=== PATIENT | female | born 1945 | race Caucasian/White ===

== ENCOUNTER 2018-10-10 07:55 | Day surgery (SDC) | payer MEDICARE ==
[2018-10-03 11:08] LABS: BASOPHILS % (AUTO) 0.6 % (0-1); EOSINOPHILS # (AUTO) 0.1 X10'3 (0-0.9); EOSINOPHILS % (AUTO) 1.9 % (0-6); LYMPHOCYTES # (AUTO) 2.5 X10'3 (1.1-4.8); LYMPHOCYTES % (AUTO) 31.9 % (21-51); MEAN CORPUSCULAR HEMOGLOBIN 30.3 PG (27.0-31.0); MEAN CORPUSCULAR HGB CONC 34.2 g/dL (33.0-36.5); MEAN CORPUSCULAR VOLUME 88.4 FL (78-98); MEAN PLATELET VOLUME 7.6 FL (7.4-10.4); MONOCYTES # (AUTO) 0.9 X10'3 (0-0.9); MONOCYTES % (AUTO) 11.9 % (2-12); NEUTROPHILS # (AUTO) 4.1 X10'3 (1.8-7.7); NEUTROPHILS % (AUTO) 53.7 % (42-75); PRE OP HEMATOCRIT 43.9 % (35.0-45.0); PRE OP PLATELET COUNT 241 X10'3 (140-440); RED BLOOD COUNT 4.97 X10'6 (4.20-5.60); RED CELL DISTRIBUTION WIDTH 13.5 % (11.5-14.5)
[2018-10-03 11:26] LABS: ALBUMIN 3.3 G/DL (3.4-5.0); ALBUMIN/GLOBULIN RATIO 0.9 (1.1-1.5); ALKALINE PHOSPHATASE 107 IU/L (46-116); BLOOD UREA NITROGEN 8 MG/DL (7-18); BUN/CREATININE RATIO 9.5 (6.6-38.0); CALCIUM 9.3 MG/DL (8.5-10.1); CHLORIDE 103 MMOL/L (99-107); CREATININE 0.84 MG/DL (0.40-0.90); PRE OP ALT 27 U/L (30-65); PRE OP ANION GAP 4 (8-16); PRE OP AST 24 U/L (10-37); PRE OP BILIRUB, TOTAL 0.4 MG/DL (0.0-1.0); PRE OP GLUCOSE 78 MG/DL (70-104); PRE OP POTASSIUM 4.1 MMOL/L (3.4-5.1); PRE OP SODIUM 140 MMOL/L (135-145); TOTAL CARBON DIOXIDE 32.6 MMOL/L (24-32); TOTAL PROTEIN 7.1 G/DL (6.4-8.2); eGFR 66 ML/MIN
[2018-10-10] VITALS (7 sets, daily range): BP systolic 120–147; BP diastolic 58–74
[~2018-10-10] VITALS: Ht 167.6 cm; Wt 72.6 kg
[~2018-10-10 07:55] MED LIST: ASPI-1265 PO; ATOR10TA PO; LIDOcaine 0.5% (5mg/ml) 50ml vial ONE; MELA3TAB PO; MULT-968 PO; OMEG1CAP2 PO; OXYB5TAB80 PO; albuterol 2.5 MG/3 ML nebule NEB ONE; ceFAZolin 1GM/D5W- ADD-VANTAGE 50 ML IV ONE; famotidine 20mg tablet PO ONE; ringers solution, lacted 1,000 ML IV SCH
[2018-10-10] MEDS ORDERED: BUPIVAcaine/PF 2.5mg/ml (0.25%) 10ml vial ONE (09:54)
[2018-10-10] MEDS ORDERED: fentaNYL/PF 50MCG/1 ML 2ML syringe ONE (10:14)
[2018-10-10] MEDS ORDERED: midazolam 2 mg/2 ml injection ONE (10:14)
[2018-10-10] MEDS ORDERED: meperidine/PF 25mg/ml syringe IV PRN ×3 (10:40)
[2018-10-10] MEDS ORDERED: morphine 4 MG/ML inj SYRINge IV PRN ×2 (10:40)
[2018-10-10] MEDS ORDERED: ondansetron/PF 4mg/2ml inj IV PRN (10:40)
[2018-10-10] MEDS ORDERED: ringers solution, lacted 1,000 ML IV SCH (10:40)
[2018-10-10] MEDS ORDERED: proCHLORperazine 10 MG/2 ml inj IV PRN (10:40)
--- NOTE | 2018-10-10 10:55 | NUR ---
Received from OR via BED, accompanied by Anesthesiologist DR BRODY and report given by Anesthesiologist. 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 Addendum: 10/10/18 at 1114 by Sharon Worley RN Amended: Links added.
== END 2018-10-10 11:55 | disposition home or self-care (01) ==
LOC: PAS 07:55
PROVIDERS: ATTEND Orthopaedic Surgery Hand Surgery
DX: M65.4 Radial styloid tenosynovitis [de Quervain] (principal); J44.9 Chronic obstructive pulmonary disease, unspecified; G47.33 Obstructive sleep apnea (adult) (pediatric); F17.210 Nicotine dependence, cigarettes, uncomplicated; Z79.82 Long term (current) use of aspirin; Z79.899 Other long term (current) drug therapy; Z98.890 Other specified postprocedural states
CPT/HCPCS: 25000; 36415; 80053; 85025; 85610; 85730; 94640; 94760; A6222; A6449; J0690; J2001; J2250; J3010; J3490; J7120

== ENCOUNTER → 2021-03-03 | Outpatient (CLI) | payer MEDICARE, MEDICAID ==
[~2021-03-03] MED LIST changes: -LIDOcaine 0.5% (5mg/ml) 50ml vial ONE; -MELA3TAB PO; +MELA3TAB39 PO; -albuterol 2.5 MG/3 ML nebule NEB ONE; -ceFAZolin 1GM/D5W- ADD-VANTAGE 50 ML IV ONE; -famotidine 20mg tablet PO ONE; +iohexol 350 MG/ML 50ML vial IV ONE; +iohexol 350MG/ML 100ml bottle IV ONE; -ringers solution, lacted 1,000 ML IV SCH
== END | disposition home or self-care (01) ==
LOC: 64 CT 08:09
PROVIDERS: ATTEND Internal Medicine Interventional Cardiology
DX: I70.203 Unspecified atherosclerosis of native arteries of extremities, bilateral legs (principal); I70.0 Atherosclerosis of aorta; M47.816 Spondylosis without myelopathy or radiculopathy, lumbar region; M43.8X6 Other specified deforming dorsopathies, lumbar region; D25.9 Leiomyoma of uterus, unspecified; K86.89 Other specified diseases of pancreas
CPT/HCPCS: 75635; Q9967

== ENCOUNTER 2024-03-09 09:50 | Inpatient (IN) | payer MEDICARE, MEDICAID ==
[~2024-03-09] VITALS: Ht 167.6 cm; Wt 61.1 kg
[~2024-03-09 09:50] MED LIST changes: -iohexol 350 MG/ML 50ML vial IV ONE; -iohexol 350MG/ML 100ml bottle IV ONE
[2024-03-09 10:34] LABS: BASOPHILS % (AUTO) 0.2 % (0-1); EOSINOPHILS % (AUTO) 0 % (0-6); HEMATOCRIT 51.1 % (35.0-45.0); HEMOGLOBIN 16.7 g/dl (12.0-16.0); LYMPHOCYTES # (AUTO) 0.8 X10'3 (1.1-4.8); LYMPHOCYTES % (AUTO) 3.9 % (21-51); MEAN CORPUSCULAR HEMOGLOBIN 30.1 PG (27.0-31.0); MEAN CORPUSCULAR HGB CONC 32.6 g/dL (33.0-36.5); MEAN CORPUSCULAR VOLUME 92.4 FL (78-98); MEAN PLATELET VOLUME 8.6 FL (7.4-10.4); MONOCYTES # (AUTO) 1.6 X10'3 (0-0.9); NEUTROPHILS # (AUTO) 17.9 X10'3 (1.8-7.7); NEUTROPHILS % (AUTO) 87.9 % (42-75); PLATELET COUNT 145 X10'3 (140-440); RED BLOOD COUNT 5.53 X10'6 (4.20-5.60); RED CELL DISTRIBUTION WIDTH 14.1 % (11.5-14.5); WHITE BLOOD COUNT 20.4 X10'3 (4.5-11.0)
[2024-03-09 11:02] LABS: ALANINE AMINOTRANSFERASE 33 U/L (12-78); ALBUMIN 2.9 G/DL (3.4-5.0); ALBUMIN/GLOBULIN RATIO 0.7 (1.1-1.5); ALKALINE PHOSPHATASE 74 IU/L (46-116); ANION GAP 2 (8-16); ASPARTATE AMINO TRANSFERASE 28 U/L (10-37); BLOOD UREA NITROGEN 21 MG/DL (7-18); BUN/CREATININE RATIO 22.1 (10.0-20.0); CALCIUM 8.7 MG/DL (8.5-10.1); CHLORIDE 101 MMOL/L (99-107); CREATININE 0.95 MG/DL (0.40-0.90); GLUCOSE 120 MG/DL (70-104); LIPASE 13 U/L (16-77); POTASSIUM 3.9 MMOL/L (3.5-5.1); SODIUM 140 MMOL/L (135-145); TOTAL CARBON DIOXIDE 36.9 MMOL/L (24-32); TOTAL PROTEIN 7.2 G/DL (6.4-8.2); eCRCL 44 ML/MIN; eGFR 57 ML/MIN
[2024-03-09 12:03] LABS: URINE HCG NEGATIVE (NEG)
[2024-03-09 12:04] LABS: BILIRUBIN,URINE NEGATIVE (Neg); CLARITY,URINE CLEAR (Clear); COLOR,URINE YELLOW (Yellow); GLUCOSE, URINE NEGATIVE (Neg); KETONES,URINE NEGATIVE (Neg); LEUKOCYTE ESTERASE ,URINE NEGATIVE (Neg); NITRITES, URINE NEGATIVE (Neg); OCCULT BLOOD,URINE TRACE-INTACT (Neg); PROTEIN,URINE 100 mg/dl (Neg); UROBILINOGEN,URINE 0.2 E.U/dL (0.2-1.0)
[2024-03-09 12:08] LABS: UA COLLECTION TYPE CLN CATCH MIDSTREAM
[2024-03-09 12:13] LABS: RBC,URINE 0-2 /HPF (0-2)
[2024-03-09 12:14] LABS: FINE GRANULAR CAST 0-3 /LPF (NEGATIVE); SQUAMOUS EPITHELIAL CELL,UR FEW /LPF (FEW)
[2024-03-09 12:15] LABS: BACTERIA,URINE NONE SEEN /HPF (Neg); WBC,URINE 0-4 /HPF (0-4)
[2024-03-09] MEDS: acetaminophen 650mg rectal suppository RC STA (13:58)
[2024-03-09] MEDS: piperacillin/tazo 3.375gm/50ml 50 ML IV ONE (13:58)
[2024-03-09] MEDS: normal saline 1000ML IV soln IVB ONE (13:58)
[2024-03-09] MEDS ORDERED: magnesium Cl slow-release 64mg tablet PO PRN (14:20)
[2024-03-09] MEDS ORDERED: morphine 2 MG/ML inj. syringe IV PRN (14:20)
[2024-03-09] MEDS ORDERED: acetaminophen 325mg tablet PO PRN (14:20)
[2024-03-09] MEDS ORDERED: potassium Cl 40MEQ/1/2NS 520ml 520 ML IV PRN (14:20)
[2024-03-09] MEDS ORDERED: potassium Cl 20 mEq SR tablet PO PRN ×2 (14:20)
[2024-03-09] MEDS: normal saline 1000ml 1,000 ML IV SCH (16:11)
[2024-03-09] MEDS: acetaminophen 325mg tablet PO SCH (16:16)
[2024-03-09] MEDS: piperacillin/tazo 3.375gm/50ml 50 ML IV SCH (16:16)
[2024-03-09] MEDS: lisinopril 5mg tablet PO STA (18:42)
[2024-03-09 19:53] VITALS: BP 140/65; PULSE 86; RESP 20; TEMP 97.3; O2SAT 93
[2024-03-09 20:00] VITALS: RESP 18; O2SAT 93
[2024-03-09 22:00] VITALS: BP 154/72; PULSE 100; RESP 20; TEMP 97.5; O2SAT 92
[2024-03-09] MEDS: acetaminophen 325mg tablet PO ONE (22:41)
[2024-03-09] MEDS: heparin, porcine 5000 units/ml vial SQ SCH (22:43)
[2024-03-10] VITALS (10 sets, daily range): BP systolic 108–159; BP diastolic 57–88; PULSE 86–103; RESP 14–20; TEMP 97.5–99; O2SAT 89–96
[2024-03-10 06:17] LABS: BASOPHILS % (AUTO) 0.1 % (0-1); EOSINOPHILS % (AUTO) 0 % (0-6); HEMATOCRIT 51.3 % (35.0-45.0); HEMOGLOBIN 16.7 g/dl (12.0-16.0); LYMPHOCYTES # (AUTO) 1.4 X10'3 (1.1-4.8); LYMPHOCYTES % (AUTO) 7.2 % (21-51); MEAN CORPUSCULAR HEMOGLOBIN 30.1 PG (27.0-31.0); MEAN CORPUSCULAR HGB CONC 32.5 g/dL (33.0-36.5); MEAN CORPUSCULAR VOLUME 92.8 FL (78-98); MEAN PLATELET VOLUME 9.7 FL (7.4-10.4); MONOCYTES # (AUTO) 1.1 X10'3 (0-0.9); MONOCYTES % (AUTO) 5.4 % (2-12); NEUTROPHILS # (AUTO) 17.4 X10'3 (1.8-7.7); NEUTROPHILS % (AUTO) 87.3 % (42-75); PLATELET COUNT 146 X10'3 (140-440); RED BLOOD COUNT 5.53 X10'6 (4.20-5.60); RED CELL DISTRIBUTION WIDTH 14.1 % (11.5-14.5)
[2024-03-10 06:30] LABS: ALANINE AMINOTRANSFERASE 18 U/L (12-78); ALBUMIN 2.6 G/DL (3.4-5.0); ALBUMIN/GLOBULIN RATIO 0.6 (1.1-1.5); ALKALINE PHOSPHATASE 76 IU/L (46-116); ANION GAP 9 (8-16); ASPARTATE AMINO TRANSFERASE 27 U/L (10-37); BLOOD UREA NITROGEN 16 MG/DL (7-18); BUN/CREATININE RATIO 19.3 (10.0-20.0); C-REACTIVE PROTEIN 13.17 MG/DL (0.0-0.5); CALCIUM 8.5 MG/DL (8.5-10.1); CHLORIDE 103 MMOL/L (99-107); CREATININE 0.83 MG/DL (0.40-0.90); GLUCOSE 91 MG/DL (70-104); POTASSIUM 3.8 MMOL/L (3.5-5.1); SODIUM 140 MMOL/L (135-145); TOTAL CARBON DIOXIDE 27.9 MMOL/L (24-32); TOTAL PROTEIN 7.1 G/DL (6.4-8.2); eCRCL 51 ML/MIN; eGFR 66 ML/MIN
[2024-03-10] MEDS: lisinopril 10 MG tablet PO SCH (07:47)
[2024-03-10] MEDS: pantoprazole 40 MG vial IV SCH (13:14)
[2024-03-10] MEDS ORDERED: iohexol 350MG/ML 100ml bottle IV ONE (13:38)
[2024-03-10 15:28] LABS: BASOPHILS % (AUTO) 0.2 % (0-1); EOSINOPHILS % (AUTO) 0.1 % (0-6); HEMATOCRIT 50.1 % (35.0-45.0); HEMOGLOBIN 16.5 g/dl (12.0-16.0); LYMPHOCYTES # (AUTO) 1.2 X10'3 (1.1-4.8); LYMPHOCYTES % (AUTO) 6.3 % (21-51); MEAN CORPUSCULAR HEMOGLOBIN 30.5 PG (27.0-31.0); MEAN CORPUSCULAR VOLUME 92.5 FL (78-98); MONOCYTES # (AUTO) 0.9 X10'3 (0-0.9); MONOCYTES % (AUTO) 4.5 % (2-12); NEUTROPHILS # (AUTO) 17.2 X10'3 (1.8-7.7); NEUTROPHILS % (AUTO) 88.9 % (42-75); PLATELET COUNT 138 X10'3 (140-440); RED BLOOD COUNT 5.42 X10'6 (4.20-5.60); RED CELL DISTRIBUTION WIDTH 14.4 % (11.5-14.5); WHITE BLOOD COUNT 19.3 X10'3 (4.5-11.0)
[2024-03-10] MEDS: budesonide 0.5mg/2ml UD nebule IH SCH (19:22)
[2024-03-10] MEDS: ipratropium/albuterol 3ml nebule NEB PRN (19:22)
[2024-03-10] MEDS: acetaminophen 325mg tablet PO ONE (19:50)
[2024-03-10] MEDS: oxybutynin 5mg tablet PO SCH (20:17)
[2024-03-10] MEDS: Melatonin 3mg tablet PO SCH (20:17)
[2024-03-10 22:37] LABS: BASOPHILS % (AUTO) 0.1 % (0-1); EOSINOPHILS % (AUTO) 0 % (0-6); HEMATOCRIT 46.8 % (35.0-45.0); HEMOGLOBIN 15.1 g/dl (12.0-16.0); LYMPHOCYTES # (AUTO) 1.2 X10'3 (1.1-4.8); LYMPHOCYTES % (AUTO) 8.3 % (21-51); MEAN CORPUSCULAR HEMOGLOBIN 29.8 PG (27.0-31.0); MEAN CORPUSCULAR HGB CONC 32.3 g/dL (33.0-36.5); MEAN CORPUSCULAR VOLUME 92.3 FL (78-98); MEAN PLATELET VOLUME 9.1 FL (7.4-10.4); MONOCYTES # (AUTO) 0.6 X10'3 (0-0.9); MONOCYTES % (AUTO) 4.1 % (2-12); NEUTROPHILS % (AUTO) 87.5 % (42-75); PLATELET COUNT 126 X10'3 (140-440); RED BLOOD COUNT 5.07 X10'6 (4.20-5.60); WHITE BLOOD COUNT 14.9 X10'3 (4.5-11.0)
[2024-03-10 22:38] LABS: APTT 37 SECONDS (22-32); INR 1.1 INR; PROTHROMBIN TIME 11.4 SECONDS (9.0-12.0)
[2024-03-10 22:40] LABS: ALANINE AMINOTRANSFERASE 15 U/L (12-78); ALBUMIN 2.4 G/DL (3.4-5.0); ALBUMIN/GLOBULIN RATIO 0.6 (1.1-1.5); ALKALINE PHOSPHATASE 69 IU/L (46-116); ANION GAP 7 (8-16); ASPARTATE AMINO TRANSFERASE 22 U/L (10-37); BILIRUBIN,TOTAL 0.7 MG/DL (0.1-1.0); BLOOD UREA NITROGEN 15 MG/DL (7-18); BUN/CREATININE RATIO 15.3 (10.0-20.0); CHLORIDE 104 MMOL/L (99-107); CREATININE 0.98 MG/DL (0.40-0.90); GLUCOSE 154 MG/DL (70-104); POTASSIUM 3.5 MMOL/L (3.5-5.1); SODIUM 140 MMOL/L (135-145); TOTAL CARBON DIOXIDE 29.5 MMOL/L (24-32); TOTAL PROTEIN 6.4 G/DL (6.4-8.2); eCRCL 43 ML/MIN; eGFR 55 ML/MIN
[2024-03-10] MEDS ORDERED: midazolam 1 mg/ML 2ml injection ONE (23:30)
[2024-03-11] VITALS (41 sets, daily range): BP systolic 96–164; BP diastolic 43–75; PULSE 86–135; RESP 11–48; O2SAT 89–100
[2024-03-11] MEDS: NORepinephrine 8mg/ 250ml NS 250 ML IV ONE (00:04)
[2024-03-11] MEDS ORDERED: fentaNYL /PF 50mcg/ml 5ml ampule ONE (00:42)
[2024-03-11] MEDS ORDERED: LIDOcaine 2% (20mg/ml) 5ml vial ONE (00:48)
[2024-03-11] MEDS ORDERED: rocuronium 10mg/ml inj IV ONE ×3 (00:48→19:39)
[2024-03-11] MEDS ORDERED: propofol inj 20 ML IV ONE (00:48)
[2024-03-11] MEDS ORDERED: fentaNYL/PF 50MCG/1 ML 2ML syringe IV PRN (02:30)
[2024-03-11] MEDS: midazolam 1 mg/ML 2ml injection IV ONE (02:30)
[2024-03-11] MEDS ORDERED: heparin 1,000unit/ml 10ml vial 10 ML ONE (02:39)
[2024-03-11] MEDS ORDERED: ondansetron/PF 4mg/2ml inj ONE (02:39)
[2024-03-11] MEDS ORDERED: dexamethasone sod phosphate 4mg/ml inj. ONE (02:39)
[2024-03-11 03:21] LABS: INR 1.2 INR; PROTHROMBIN TIME 12.7 SECONDS (9.0-12.0)
[2024-03-11 03:33] LABS: APTT > 139 SECONDS (22-32)
[2024-03-11] MEDS: FENTANYL-0.9 % NACL/PF 100 ML IV SCH (04:00)
[2024-03-11] MEDS: MIDAZOLAM IN NACL,ISO-OSMOT/PF 100 ML IV SCH (04:00)
[2024-03-11 04:10] LABS: ABG BASE EXCESS -3.9 mmol/L (-2.0-2.0); ABG HCO3 20.7 mmol/L (22.0-26.0); ABG OXYGEN SATURATION 99.9 % (92-98.5); ABG PCO2 (T) 34.6 mmHg (32.0-45.0); ABG PO2 (T) 412.5 mmHg (75.0-100.0); FCOHb 0.8 % (0.5-1.5); FHHb 0.1 % (0.0-5.0); FMetHb 0.1 % (0.0-1.5); MODE VENT - SIMV; PATIENT TEMPERATURE 35.7; PEEP 5 cm H2O; RESPIRATORY RATE 12 b/min; TIDAL VOLUME 450 mL; TOTAL HEMOGLOBIN 14.6 G/dl (12.0-16.0)
[2024-03-11 04:29] LABS: BASOPHILS % (AUTO) 0.3 % (0-1); EOSINOPHILS % (AUTO) 0.2 % (0-6); HEMATOCRIT 42.4 % (35.0-45.0); HEMOGLOBIN 13.6 g/dl (12.0-16.0); LYMPHOCYTES # (AUTO) 1.4 X10'3 (1.1-4.8); LYMPHOCYTES % (AUTO) 9.1 % (21-51); MEAN CORPUSCULAR HEMOGLOBIN 29.5 PG (27.0-31.0); MEAN CORPUSCULAR HGB CONC 32.1 g/dL (33.0-36.5); MEAN PLATELET VOLUME 8.9 FL (7.4-10.4); MONOCYTES # (AUTO) 0.7 X10'3 (0-0.9); MONOCYTES % (AUTO) 4.9 % (2-12); NEUTROPHILS # (AUTO) 12.9 X10'3 (1.8-7.7); NEUTROPHILS % (AUTO) 85.5 % (42-75); PLATELET COUNT 132 X10'3 (140-440); RED BLOOD COUNT 4.61 X10'6 (4.20-5.60); RED CELL DISTRIBUTION WIDTH 14.1 % (11.5-14.5); WHITE BLOOD COUNT 15.1 X10'3 (4.5-11.0)
[2024-03-11 04:45] LABS: ALANINE AMINOTRANSFERASE 13 U/L (12-78); ALBUMIN 1.9 G/DL (3.4-5.0); ALBUMIN/GLOBULIN RATIO 0.6 (1.1-1.5); ALKALINE PHOSPHATASE 55 IU/L (46-116); ANION GAP 12 (8-16); ASPARTATE AMINO TRANSFERASE 24 U/L (10-37); BILIRUBIN,TOTAL 0.9 MG/DL (0.1-1.0); BLOOD UREA NITROGEN 15 MG/DL (7-18); BUN/CREATININE RATIO 18.1 (10.0-20.0); CALCIUM 7.3 MG/DL (8.5-10.1); CHLORIDE 105 MMOL/L (99-107); CREATININE 0.83 MG/DL (0.40-0.90); GLUCOSE 137 MG/DL (70-104); MAGNESIUM 1.4 MG/DL (1.5-2.4); PHOSPHORUS 1.4 MG/DL (2.3-4.5); SODIUM 141 MMOL/L (135-145); TOTAL CARBON DIOXIDE 24.1 MMOL/L (24-32); TOTAL PROTEIN 5.1 G/DL (6.4-8.2); eCRCL 51 ML/MIN; eGFR 66 ML/MIN
[2024-03-11 04:52] LABS: POTASSIUM 2.9 MMOL/L (3.5-5.1)
[2024-03-11] MEDS: magnesium sulf-water 4G/100mL 100 ML IV PRN (05:03)
[2024-03-11] MEDS: potassium Cl 20mEq/100mL bag 100 ML IV PRN (05:09)
[2024-03-11] MEDS ORDERED: NORepinephrine 8mg/ 250ml NS 250 ML IV PRN ×2 (06:05→06:07)
[2024-03-11] MEDS: lisinopril 10 MG tablet PO SCH (08:53)
[2024-03-11] MEDS: atorvastatin 10mg tablet PO SCH (08:54)
[2024-03-11] MEDS: aspirin 81mg tab.chew PO SCH (08:54)
[2024-03-11] MEDS: multivitamins, therapeutics tablet PO SCH (08:54)
[2024-03-11] MEDS: OMEGA-3/DHA/EPA/FISH OIL 1 EACH CAPSULE.DR PO SCH (08:56)
[2024-03-11] MEDS: magnesium sulf-water 2g/50mL 50 ML IV PRN (09:34)
[2024-03-11] MEDS: albumin (Human) 5% 250ml 250 ML IV ONE ×2 (10:17→12:46)
[2024-03-11] MEDS ORDERED: iohexol 350MG/ML 100ml bottle IV ONE (13:36)
[2024-03-11 18:32] LABS: POTASSIUM 4.5 MMOL/L (3.5-5.1)
[2024-03-11] MEDS ORDERED: sevoflurane 250ml liquid IH ONE (18:32)
[2024-03-11 18:45] LABS: MAGNESIUM 3.1 MG/DL (1.5-2.4)
[2024-03-11 20:05] LABS: ABG BASE EXCESS -5.7 mmol/L (-2.0-2.0); ABG HCO3 19.2 mmol/L (22.0-26.0); ABG OXYGEN SATURATION 97.5 % (92-98.5); ABG PCO2 (T) 34.6 mmHg (32.0-45.0); ABG PH (T) 7.359 (7.350-7.450); FCOHb 0.7 % (0.5-1.5); FHHb 2.5 % (0.0-5.0); FMetHb 0.3 % (0.0-1.5); FO2Hb 96.5 % (94-97); PATIENT TEMPERATURE 36.2; PEEP 5 cm H2O; RESPIRATORY RATE 12 b/min; TIDAL VOLUME 450 mL
[2024-03-11] MEDS: albuterol 2.5 MG/3 ML nebule NEB PRN (21:03)
[2024-03-12] VITALS (41 sets, daily range): BP systolic 93–147; BP diastolic 37–62; PULSE 74–122; RESP 12–30; O2SAT 97–100
[2024-03-12 02:57] LABS: BASOPHILS % (AUTO) 0.1 % (0-1); EOSINOPHILS % (AUTO) 0 % (0-6); HEMATOCRIT 36.8 % (35.0-45.0); HEMOGLOBIN 11.9 g/dl (12.0-16.0); LYMPHOCYTES # (AUTO) 0.6 X10'3 (1.1-4.8); LYMPHOCYTES % (AUTO) 4.3 % (21-51); MEAN CORPUSCULAR HGB CONC 32.2 g/dL (33.0-36.5); MEAN CORPUSCULAR VOLUME 93.2 FL (78-98); MEAN PLATELET VOLUME 9.2 FL (7.4-10.4); MONOCYTES % (AUTO) 7.6 % (2-12); NEUTROPHILS # (AUTO) 11.7 X10'3 (1.8-7.7); PLATELET COUNT 139 X10'3 (140-440); RED BLOOD COUNT 3.95 X10'6 (4.20-5.60); RED CELL DISTRIBUTION WIDTH 14.8 % (11.5-14.5); WHITE BLOOD COUNT 13.2 X10'3 (4.5-11.0)
[2024-03-12 03:13] LABS: ALANINE AMINOTRANSFERASE 18 U/L (12-78); ALBUMIN 2.2 G/DL (3.4-5.0); ALBUMIN/GLOBULIN RATIO 0.7 (1.1-1.5); ALKALINE PHOSPHATASE 40 IU/L (46-116); ANION GAP 5 (8-16); ASPARTATE AMINO TRANSFERASE 16 U/L (10-37); BILIRUBIN,TOTAL 0.7 MG/DL (0.1-1.0); BLOOD UREA NITROGEN 17 MG/DL (7-18); BUN/CREATININE RATIO 15.9 (10.0-20.0); CALCIUM 7.4 MG/DL (8.5-10.1); CHLORIDE 109 MMOL/L (99-107); CREATININE 1.07 MG/DL (0.40-0.90); GLUCOSE 138 MG/DL (70-104); MAGNESIUM 2.8 MG/DL (1.5-2.4); PHOSPHORUS 3.6 MG/DL (2.3-4.5); POTASSIUM 4.1 MMOL/L (3.5-5.1); SODIUM 139 MMOL/L (135-145); TOTAL CARBON DIOXIDE 25.5 MMOL/L (24-32); TOTAL PROTEIN 5.4 G/DL (6.4-8.2); eCRCL 39 ML/MIN; eGFR 49 ML/MIN
[2024-03-12 03:27] LABS: ABG BASE EXCESS -3.5 mmol/L (-2.0-2.0); ABG HCO3 23.1 mmol/L (22.0-26.0); ABG OXYGEN SATURATION 97.1 % (92-98.5); ABG PCO2 (T) 47.5 mmHg (32.0-45.0); ABG PH (T) 7.304 (7.350-7.450); ABG PO2 (T) 92.9 mmHg (75.0-100.0); FCOHb 0.6 % (0.5-1.5); FHHb 2.9 % (0.0-5.0); FMetHb 0.3 % (0.0-1.5); FO2Hb 96.2 % (94-97); MODE VENT - SIMV; PATIENT TEMPERATURE 36.6; PEEP 5 cm H2O; RESPIRATORY RATE 12 b/min; TIDAL VOLUME 450 mL; TOTAL HEMOGLOBIN 12.4 G/dl (12.0-16.0)
[2024-03-12] MEDS: NORepinephrine 8mg/ 250ml NS 250 ML IV PRN (04:44)
[2024-03-12] MEDS: mineral oil/petrolatum ophthal oint EACHEYE SCH (08:00)
[2024-03-12] MEDS: albumin (Human) 5% 250ml 250 ML IV ONE ×4 (08:34→11:50)
[2024-03-12] MEDS ORDERED: PREG75CA76 PO (12:30)
[2024-03-12] MEDS ORDERED: FURO20TA4 PO (12:30)
[2024-03-12] MEDS: dexmedetomidin/NS 400mcg/100ml 100 ML IV PRN (13:20)
[2024-03-12 17:27] LABS: HEMATOCRIT 29.4 % (35.0-45.0); HEMOGLOBIN 9.6 g/dl (12.0-16.0); MEAN CORPUSCULAR HEMOGLOBIN 30.7 PG (27.0-31.0); MEAN CORPUSCULAR HGB CONC 32.8 g/dL (33.0-36.5); MEAN CORPUSCULAR VOLUME 93.4 FL (78-98); MEAN PLATELET VOLUME 8.9 FL (7.4-10.4); PLATELET COUNT 114 X10'3 (140-440); RED BLOOD COUNT 3.14 X10'6 (4.20-5.60); RED CELL DISTRIBUTION WIDTH 14.8 % (11.5-14.5); WHITE BLOOD COUNT 10.7 X10'3 (4.5-11.0)
[2024-03-13] VITALS (40 sets, daily range): BP systolic 43–150; BP diastolic 21–61; PULSE 74–120; RESP 7–35; O2SAT 93–100
[2024-03-13] MEDS ORDERED: DEXTROSE 15 GM of carb/4 tabs (each vial/BOTTLE has 4 tablets) PO PRN ×2 (02:15)
[2024-03-13] MEDS ORDERED: dextrose 50%-water 50ml dispensing syringe IV PRN (02:15)
[2024-03-13] MEDS ORDERED: glucagon, human recombinant 1mg kit SUBCUT PRN (02:15)
[2024-03-13] MEDS: dextrose 50%-water 50ml dispensing syringe IV PRN (02:21)
[2024-03-13 03:10] LABS: ABG BASE EXCESS -5.6 mmol/L (-2.0-2.0); ABG HCO3 20.5 mmol/L (22.0-26.0); ABG OXYGEN SATURATION 96.7 % (92-98.5); ABG PCO2 (T) 42.7 mmHg (32.0-45.0); ABG PO2 (T) 93.6 mmHg (75.0-100.0); FCOHb 0.4 % (0.5-1.5); FHHb 3.3 % (0.0-5.0); FMetHb 0.3 % (0.0-1.5); PEEP 5 cm H2O; RESPIRATORY RATE 12 b/min; TIDAL VOLUME 450 mL; TOTAL HEMOGLOBIN 10.5 G/dl (12.0-16.0)
[2024-03-13 03:19] LABS: BASOPHILS % (AUTO) 0 % (0-1); EOSINOPHILS % (AUTO) 0 % (0-6); HEMATOCRIT 29.4 % (35.0-45.0); HEMOGLOBIN 9.5 g/dl (12.0-16.0); LYMPHOCYTES # (AUTO) 0.7 X10'3 (1.1-4.8); LYMPHOCYTES % (AUTO) 7.5 % (21-51); MEAN CORPUSCULAR HEMOGLOBIN 30.3 PG (27.0-31.0); MEAN CORPUSCULAR HGB CONC 32.4 g/dL (33.0-36.5); MEAN CORPUSCULAR VOLUME 93.6 FL (78-98); MONOCYTES # (AUTO) 0.8 X10'3 (0-0.9); NEUTROPHILS # (AUTO) 7.8 X10'3 (1.8-7.7); NEUTROPHILS % (AUTO) 83.5 % (42-75); PLATELET COUNT 92 X10'3 (140-440); RED BLOOD COUNT 3.15 X10'6 (4.20-5.60); RED CELL DISTRIBUTION WIDTH 15.2 % (11.5-14.5); WHITE BLOOD COUNT 9.3 X10'3 (4.5-11.0)
[2024-03-13 03:31] LABS: ALANINE AMINOTRANSFERASE 25 U/L (12-78); ALBUMIN 2.3 G/DL (3.4-5.0); ALBUMIN/GLOBULIN RATIO 0.9 (1.1-1.5); ALKALINE PHOSPHATASE 36 IU/L (46-116); ANION GAP 8 (8-16); ASPARTATE AMINO TRANSFERASE 52 U/L (10-37); BILIRUBIN,TOTAL 0.7 MG/DL (0.1-1.0); BLOOD UREA NITROGEN 21 MG/DL (7-18); BUN/CREATININE RATIO 17.5 (10.0-20.0); CALCIUM 7.5 MG/DL (8.5-10.1); CHLORIDE 111 MMOL/L (99-107); GLUCOSE 126 MG/DL (70-104); POTASSIUM 3.5 MMOL/L (3.5-5.1); SODIUM 141 MMOL/L (135-145); TOTAL CARBON DIOXIDE 21.7 MMOL/L (24-32); TOTAL PROTEIN 4.9 G/DL (6.4-8.2); eCRCL 35 ML/MIN; eGFR 43 ML/MIN
[2024-03-13] MEDS: potassium Cl 20mEq/100mL bag 100 ML IV ONE (04:08)
[2024-03-13] MEDS: albumin (human) 25% 100 ML IV solution IV ONE (09:32)
[2024-03-13] MEDS: HYDROcodone/acetaminophen 5mg/325mg tablet PO PRN (10:51)
[2024-03-13] MEDS ORDERED: albumin (human) 25% 100ml IV 400 ML IV ONE ×2 (11:00→11:10)
[2024-03-13] MEDS ORDERED: albumin (Human) 5% 250ml 250 ML IV SCH (12:05)
[2024-03-13] MEDS: dextrose 5%-normal saline 1,000 ML IV SCH (13:40)
[2024-03-13] MEDS: HYDROmorphone inj. 0.5 MG/0.5 ML DISP.SYRIN IV PRN (21:32)
[2024-03-14] VITALS (45 sets, daily range): BP systolic 101–143; BP diastolic 40–84; PULSE 79–132; RESP 13–40; O2SAT 93–99
[2024-03-14 03:43] LABS: ABG BASE EXCESS -7.3 mmol/L (-2.0-2.0); ABG HCO3 18.3 mmol/L (22.0-26.0); ABG OXYGEN SATURATION 97.8 % (92-98.5); ABG PCO2 (T) 37.3 mmHg (32.0-45.0); ABG PH (T) 7.309 (7.350-7.450); FCOHb 0.2 % (0.5-1.5); FHHb 2.2 % (0.0-5.0); FMetHb 0.3 % (0.0-1.5); FO2Hb 97.3 % (94-97); MODE VENT - SIMV; PEEP 5 cm H2O; RESPIRATORY RATE 12 b/min; TIDAL VOLUME 450 mL; TOTAL HEMOGLOBIN 10.2 G/dl (12.0-16.0)
[2024-03-14 04:04] LABS: ALANINE AMINOTRANSFERASE 24 U/L (12-78); ALBUMIN 1.8 G/DL (3.4-5.0); ALBUMIN/GLOBULIN RATIO 0.8 (1.1-1.5); ALKALINE PHOSPHATASE 39 IU/L (46-116); ANION GAP 8 (8-16); ASPARTATE AMINO TRANSFERASE 39 U/L (10-37); BILIRUBIN,TOTAL 0.5 MG/DL (0.1-1.0); BLOOD UREA NITROGEN 18 MG/DL (7-18); BUN/CREATININE RATIO 17.8 (10.0-20.0); CALCIUM 6.6 MG/DL (8.5-10.1); CHLORIDE 116 MMOL/L (99-107); CREATININE 1.01 MG/DL (0.40-0.90); GLUCOSE 120 MG/DL (70-104); SODIUM 145 MMOL/L (135-145); TOTAL CARBON DIOXIDE 20.6 MMOL/L (24-32); TOTAL PROTEIN 4.1 G/DL (6.4-8.2); eCRCL 42 ML/MIN; eGFR 53 ML/MIN
[2024-03-14 06:53] LABS: BASOPHILS % (AUTO) 0.1 % (0-1); EOSINOPHILS % (AUTO) 0.3 % (0-6); HEMATOCRIT 30.5 % (35.0-45.0); HEMOGLOBIN 9.9 g/dl (12.0-16.0); LYMPHOCYTES # (AUTO) 0.9 X10'3 (1.1-4.8); LYMPHOCYTES % (AUTO) 9.7 % (21-51); MEAN CORPUSCULAR HEMOGLOBIN 30.2 PG (27.0-31.0); MEAN CORPUSCULAR HGB CONC 32.6 g/dL (33.0-36.5); MEAN CORPUSCULAR VOLUME 92.7 FL (78-98); MEAN PLATELET VOLUME 8.4 FL (7.4-10.4); MONOCYTES # (AUTO) 0.8 X10'3 (0-0.9); MONOCYTES % (AUTO) 8.4 % (2-12); NEUTROPHILS # (AUTO) 7.8 X10'3 (1.8-7.7); NEUTROPHILS % (AUTO) 81.5 % (42-75); PLATELET COUNT 115 X10'3 (140-440); RED BLOOD COUNT 3.29 X10'6 (4.20-5.60); RED CELL DISTRIBUTION WIDTH 14.8 % (11.5-14.5); WHITE BLOOD COUNT 9.6 X10'3 (4.5-11.0)
[2024-03-14] MEDS ORDERED: magnesium sulf-water 2g/50mL 50 ML IV PRN ×2 (08:10→15:15)
[2024-03-14] MEDS ORDERED: magnesium sulf-water 4G/100mL 100 ML IV PRN ×2 (08:10→15:15)
[2024-03-14] MEDS ORDERED: potassium Cl 40MEQ/270ML bag 270 ML IV PRN ×3 (08:10→15:15)
[2024-03-14] MEDS ORDERED: potassium Cl 20 mEq SR tablet PO PRN ×2 (08:10)
[2024-03-14] MEDS ORDERED: potassium Cl 40MEQ/1/2NS 520ml 520 ML IV PRN ×3 (08:10→15:15)
[2024-03-14] MEDS: racepinephrine 11.25mg/0.5ml nebule IH PRN (12:46)
[2024-03-14] MEDS: albuterol 2.5 MG/3 ML nebule NEB SCH (15:10)
[2024-03-14] MEDS ORDERED: Dextrose 10%-water IV solution 1,000 ML IV PRN (15:15)
[2024-03-14] MEDS: ondansetron/PF 4mg/2ml inj IV PRN (16:25)
[2024-03-14 18:00] LABS: ALANINE AMINOTRANSFERASE 35 U/L (12-78); ALBUMIN 2.4 G/DL (3.4-5.0); ALBUMIN/GLOBULIN RATIO 0.8 (1.1-1.5); ALKALINE PHOSPHATASE 56 IU/L (46-116); ANION GAP 7 (8-16); ASPARTATE AMINO TRANSFERASE 39 U/L (10-37); BILIRUBIN,TOTAL 0.7 MG/DL (0.1-1.0); BLOOD UREA NITROGEN 16 MG/DL (7-18); BUN/CREATININE RATIO 15.7 (10.0-20.0); CALCIUM 7.9 MG/DL (8.5-10.1); CHLORIDE 114 MMOL/L (99-107); CREATININE 1.02 MG/DL (0.40-0.90); GLUCOSE 107 MG/DL (70-104); MAGNESIUM 2.1 MG/DL (1.5-2.4); POTASSIUM 4.7 MMOL/L (3.5-5.1); PREALBUMIN 8.8 MG/DL (19-36); SODIUM 143 MMOL/L (135-145); TOTAL CARBON DIOXIDE 21.8 MMOL/L (24-32); TOTAL PROTEIN 5.4 G/DL (6.4-8.2); TRIGLYCERIDES 86 MG/DL (20-135); eCRCL 41 ML/MIN; eGFR 52 ML/MIN
[2024-03-14] MEDS: ZINC/COPPER/MANGANESE/SELENIUM 1 ML, chromic chloride inj. 10 MCG in AA 5%/CALCIUM/LYTE... IV SCH (20:21)
[2024-03-14] MEDS: fat emulsion 20% inj. 100 ML IV SCH (20:22)
[2024-03-15] VITALS (30 sets, daily range): BP systolic 88–147; BP diastolic 39–66; PULSE 82–133; RESP 14–33; O2SAT 64–99
[2024-03-15 03:07] LABS: BASOPHILS % (AUTO) 0.1 % (0-1); EOSINOPHILS # (AUTO) 0.1 X10'3 (0-0.9); EOSINOPHILS % (AUTO) 0.5 % (0-6); HEMATOCRIT 30.9 % (35.0-45.0); LYMPHOCYTES # (AUTO) 0.9 X10'3 (1.1-4.8); LYMPHOCYTES % (AUTO) 8.5 % (21-51); MEAN CORPUSCULAR HEMOGLOBIN 30.5 PG (27.0-31.0); MEAN CORPUSCULAR HGB CONC 32.4 g/dL (33.0-36.5); MONOCYTES # (AUTO) 0.8 X10'3 (0-0.9); MONOCYTES % (AUTO) 8.2 % (2-12); NEUTROPHILS # (AUTO) 8.5 X10'3 (1.8-7.7); NEUTROPHILS % (AUTO) 82.7 % (42-75); PLATELET COUNT 136 X10'3 (140-440); RED BLOOD COUNT 3.29 X10'6 (4.20-5.60); RED CELL DISTRIBUTION WIDTH 15.5 % (11.5-14.5); WHITE BLOOD COUNT 10.2 X10'3 (4.5-11.0)
[2024-03-15 03:24] LABS: ALANINE AMINOTRANSFERASE 32 U/L (12-78); ALBUMIN 2.3 G/DL (3.4-5.0); ALBUMIN/GLOBULIN RATIO 0.8 (1.1-1.5); ALKALINE PHOSPHATASE 57 IU/L (46-116); ANION GAP 5 (8-16); ASPARTATE AMINO TRANSFERASE 33 U/L (10-37); BILIRUBIN,TOTAL 0.6 MG/DL (0.1-1.0); BLOOD UREA NITROGEN 15 MG/DL (7-18); BUN/CREATININE RATIO 15.6 (10.0-20.0); CALCIUM 8.2 MG/DL (8.5-10.1); CHLORIDE 113 MMOL/L (99-107); CREATININE 0.96 MG/DL (0.40-0.90); GLUCOSE 128 MG/DL (70-104); MAGNESIUM 2.2 MG/DL (1.5-2.4); PHOSPHORUS 2.4 MG/DL (2.3-4.5); POTASSIUM 4.6 MMOL/L (3.5-5.1); SODIUM 144 MMOL/L (135-145); TOTAL CARBON DIOXIDE 25.7 MMOL/L (24-32); TOTAL PROTEIN 5.3 G/DL (6.4-8.2); eCRCL 44 ML/MIN; eGFR 56 ML/MIN
[2024-03-15] MEDS: K and/or MAG REPLACEMENT MC SCH (08:00)
[2024-03-15] MEDS: furosemide 20 MG/2 ML vial IV SCH (16:21)
[2024-03-15] MEDS: furosemide 20 MG/2 ML vial IV ONE (16:24)
[2024-03-15] MEDS: aspirin 300mg supp.rect RC SCH (16:24)
[2024-03-15] MEDS: metoclopramide 5 mg/ml inj IV SCH (20:20)
[2024-03-15] MEDS: enoxaparin 40mg/0.4ml syringe SUBCUT SCH (20:21)
[2024-03-15] MEDS: ZINC/COPPER/MANGANESE/SELENIUM 1 ML, chromic chloride inj. 10 MCG in AA 5%/CALCIUM/LYTE... IV SCH (20:24)
[2024-03-16] VITALS (39 sets, daily range): BP systolic 79–162; BP diastolic 36–77; PULSE 63–124; RESP 14–36; O2SAT 91–100
[2024-03-16] MEDS: amiodarone 150mg/dext, iso-os 100 ML IV ONE (00:13)
[2024-03-16] MEDS: amiodarone/D5 360MG/200ML BAG 200 ML IV SCH (00:14)
[2024-03-16 03:17] LABS: ABG HCO3 23.3 mmol/L (22.0-26.0); ABG OXYGEN SATURATION 92.6 % (92-98.5); ABG PCO2 (T) 52.6 mmHg (32.0-45.0); ALLEN'S TEST POSITIVE; FCOHb 1.2 % (0.5-1.5); FHHb 7.3 % (0.0-5.0); FLOW 15 L/min; FO2Hb 91.5 % (94-97); MODE MASK - BIPAP; PATIENT TEMPERATURE 34.6; TOTAL HEMOGLOBIN 11.9 G/dl (12.0-16.0)
[2024-03-16 03:42] LABS: ALANINE AMINOTRANSFERASE 30 U/L (12-78); ALBUMIN 2.2 G/DL (3.4-5.0); ALBUMIN/GLOBULIN RATIO 0.6 (1.1-1.5); ALKALINE PHOSPHATASE 62 IU/L (46-116); ANION GAP 6 (8-16); ASPARTATE AMINO TRANSFERASE 19 U/L (10-37); BILIRUBIN,TOTAL 0.5 MG/DL (0.1-1.0); BLOOD UREA NITROGEN 17 MG/DL (7-18); BUN/CREATININE RATIO 21.3 (10.0-20.0); CALCIUM 8.5 MG/DL (8.5-10.1); CHLORIDE 110 MMOL/L (99-107); GLUCOSE 212 MG/DL (70-104); MAGNESIUM 1.9 MG/DL (1.5-2.4); POTASSIUM 4.4 MMOL/L (3.5-5.1); PREALBUMIN 10.5 MG/DL (19-36); SODIUM 143 MMOL/L (135-145); TOTAL CARBON DIOXIDE 27.3 MMOL/L (24-32); TOTAL PROTEIN 5.7 G/DL (6.4-8.2); TRIGLYCERIDES 76 MG/DL (20-135); eCRCL 53 ML/MIN; eGFR 69 ML/MIN
[2024-03-16] MEDS: dexmedetomidin/NS 400mcg/100ml 100 ML IV SCH (03:46)
[2024-03-16 04:48] LABS: ABG BASE EXCESS -4.9 mmol/L (-2.0-2.0); ABG HCO3 22.4 mmol/L (22.0-26.0); ABG OXYGEN SATURATION 95.3 % (92-98.5); ABG PCO2 (T) 51.8 mmHg (32.0-45.0); ABG PH (T) 7.255 (7.350-7.450); ABG PO2 (T) 83.1 mmHg (75.0-100.0); ALLEN'S TEST POSITIVE; FHHb 4.6 % (0.0-5.0); FMetHb 0.3 % (0.0-1.5); FO2Hb 94.1 % (94-97); MODE MASK - BIPAP; PATIENT TEMPERATURE 37.3; RESPIRATORY RATE 18 b/min; TOTAL HEMOGLOBIN 11.7 G/dl (12.0-16.0)
[2024-03-16 06:16] LABS: BASOPHILS % 0 % (0-2); EOSINOPHILS # (AUTO) 0.1 X10'3 (0-0.9); EOSINOPHILS % (AUTO) 1 % (0-6); HEMOGLOBIN 11.1 G/DL (11.5-16.0); LYMPHOCYTES # (AUTO) 0.8 X10'3 (1.1-4.8); LYMPHOCYTES % 8 % (24-44); MEAN CORPUSCULAR HEMOGLOBIN 30.5 PG (27-31.2); MEAN CORPUSCULAR HGB CONC 32.6 % (32-36); MEAN CORPUSCULAR VOLUME 93.7 FL (81-97); MONOCYTES # (AUTO) 0.1 X10'3 (0-0.9); MONOCYTES % 1 % (0-12); NEUTROPHILS # (AUTO) 8.6 X10'3 (1.8-7.7); PLATELET COUNT 186 X10'3 (130-400); RED BLOOD COUNT 3.63 X10'6 (3.60-4.90); RED CELL DISTRIBUTION WIDTH 14.8 % (11-16); SEGMENTED NEUTROPHILS % 90 % (36-66); WHITE BLOOD COUNT 9.5 X10'3 (4.5-11.0)
[2024-03-16 10:17] LABS: ABG HCO3 25.7 mmol/L (22.0-26.0); ABG OXYGEN SATURATION 89.1 % (92-98.5); ABG PH (T) 7.254 (7.350-7.450); ABG PO2 (T) 63.2 mmHg (75.0-100.0); ALLEN'S TEST POSITIVE; FCOHb 0.7 % (0.5-1.5); FHHb 10.8 % (0.0-5.0); FLOW 12 L/min; FMetHb 0.3 % (0.0-1.5); FO2Hb 88.2 % (94-97); MODE MASK - VENTI; PATIENT TEMPERATURE 37.8; TOTAL HEMOGLOBIN 11.8 G/dl (12.0-16.0)
[2024-03-16] MEDS: ipratropium/albuterol 3ml nebule NEB SCH (11:00)
[2024-03-16] MEDS ORDERED: acetaminophen 325mg/10.15ml oral unit dose solution CORPAK PRN (15:07)
[2024-03-16] MEDS ORDERED: DEXTROSE 15 GM of carb/4 tabs (each vial/BOTTLE has 4 tablets) CORPAK PRN ×2 (15:08)
[2024-03-16] MEDS ORDERED: POTASSIUM CHLORIDE 20 MEQ/15 ML oral solution CORPAK PRN ×2 (15:09→15:10)
[2024-03-16] MEDS: morphine 2 MG/ML inj. syringe IV PRN (15:10)
[2024-03-16] MEDS: acetaminophen 325mg/10.15ml oral unit dose solution CORPAK SCH (15:30)
[2024-03-16] MEDS ORDERED: HYDROcodone/acetaminophen 7.5MG/325MG per 15ml UD CUP PO PRN (16:23)
[2024-03-16] MEDS ORDERED: HYDROcodone/acetaminophen 7.5MG/325MG per 15ml UD CUP CORPAK PRN (16:24)
[2024-03-16] MEDS: oxybutynin 5mg tablet GT SCH (20:13)
[2024-03-16] MEDS: Melatonin 3mg tablet CORPAK SCH (21:24)
[2024-03-16] MEDS: PHENYLephrine 10mg/ml inj. 50 MG in normal saline 250ml IV soln 245 ML IV SCH ×2 (23:30→23:52)
[2024-03-17] VITALS (39 sets, daily range): BP systolic 96–144; BP diastolic 42–72; PULSE 69–104; RESP 15–37; O2SAT 87–97
[2024-03-17 02:54] LABS: BASOPHILS % (AUTO) 0.1 % (0-1); EOSINOPHILS # (AUTO) 0.2 X10'3 (0-0.9); EOSINOPHILS % (AUTO) 2.1 % (0-6); HEMATOCRIT 30.2 % (35.0-45.0); HEMOGLOBIN 9.6 g/dl (12.0-16.0); LYMPHOCYTES # (AUTO) 0.9 X10'3 (1.1-4.8); LYMPHOCYTES % (AUTO) 7.8 % (21-51); MEAN CORPUSCULAR HEMOGLOBIN 29.6 PG (27.0-31.0); MEAN CORPUSCULAR HGB CONC 31.9 g/dL (33.0-36.5); MEAN CORPUSCULAR VOLUME 92.7 FL (78-98); MEAN PLATELET VOLUME 8.4 FL (7.4-10.4); MONOCYTES # (AUTO) 0.9 X10'3 (0-0.9); MONOCYTES % (AUTO) 7.8 % (2-12); NEUTROPHILS # (AUTO) 9.5 X10'3 (1.8-7.7); NEUTROPHILS % (AUTO) 82.2 % (42-75); PLATELET COUNT 167 X10'3 (140-440); RED BLOOD COUNT 3.26 X10'6 (4.20-5.60); RED CELL DISTRIBUTION WIDTH 14.6 % (11.5-14.5); WHITE BLOOD COUNT 11.6 X10'3 (4.5-11.0)
[2024-03-17 03:09] LABS: ALANINE AMINOTRANSFERASE 32 U/L (12-78); ALBUMIN/GLOBULIN RATIO 0.7 (1.1-1.5); ALKALINE PHOSPHATASE 54 IU/L (46-116); ANION GAP 3 (8-16); ASPARTATE AMINO TRANSFERASE 21 U/L (10-37); BILIRUBIN,TOTAL 0.5 MG/DL (0.1-1.0); BLOOD UREA NITROGEN 24 MG/DL (7-18); BUN/CREATININE RATIO 28.9 (10.0-20.0); CALCIUM 8.7 MG/DL (8.5-10.1); CHLORIDE 109 MMOL/L (99-107); CREATININE 0.83 MG/DL (0.40-0.90); GLUCOSE 189 MG/DL (70-104); MAGNESIUM 1.6 MG/DL (1.5-2.4); PHOSPHORUS 3.8 MG/DL (2.3-4.5); POTASSIUM 4.2 MMOL/L (3.5-5.1); SODIUM 141 MMOL/L (135-145); TOTAL CARBON DIOXIDE 29.5 MMOL/L (24-32); eCRCL 51 ML/MIN; eGFR 66 ML/MIN
[2024-03-17 05:03] LABS: ABG BASE EXCESS 2.9 mmol/L (-2.0-2.0); ABG HCO3 29.1 mmol/L (22.0-26.0); ABG OXYGEN SATURATION 94.4 % (92-98.5); ABG PCO2 (T) 53.3 mmHg (32.0-45.0); ABG PH (T) 7.357 (7.350-7.450); ABG PO2 (T) 74.1 mmHg (75.0-100.0); FCOHb 0.5 % (0.5-1.5); FHHb 5.6 % (0.0-5.0); FMetHb 0.3 % (0.0-1.5); FO2Hb 93.6 % (94-97); MODE MASK - BIPAP; PATIENT TEMPERATURE 37.3; TOTAL HEMOGLOBIN 10.7 G/dl (12.0-16.0)
[2024-03-17] MEDS: lisinopril 10 MG tablet CORPAK SCH (08:00)
[2024-03-17] MEDS: atorvastatin 10mg tablet CORPAK SCH (09:45)
[2024-03-17 10:16] LABS: ABG BASE EXCESS -0.5 mmol/L (-2.0-2.0); ABG HCO3 24.9 mmol/L (22.0-26.0); ABG OXYGEN SATURATION 90.9 % (92-98.5); ABG PCO2 (T) 44.5 mmHg (32.0-45.0); ABG PH (T) 7.367 (7.350-7.450); ABG PO2 (T) 62.9 mmHg (75.0-100.0); ALLEN'S TEST POSITIVE; FCOHb 0.6 % (0.5-1.5); FLOW 20 L/min; FMetHb 0.3 % (0.0-1.5); FO2Hb 90.1 % (94-97); MODE HHFNC; PATIENT TEMPERATURE 37.1
[2024-03-17] MEDS: MVI, adult No.4 with vit. K 10 ML in dextrose 5% water 500ml 500 ML IV SCH (11:06)
[2024-03-17] MEDS: midodrine 5mg tablet PO SCH (12:37)
[2024-03-17] MEDS: midodrine 5mg tablet CORPAK SCH (16:15)
[2024-03-17] MEDS: diphenhydrAMINE 50 mg/ml inj IV SCH (21:00)
[2024-03-17] MEDS: methylPREDNISolone sod succ/PF 40mg inj. IV SCH (21:30)
[2024-03-18] VITALS (43 sets, daily range): BP systolic 120–151; BP diastolic 38–80; PULSE 66–107; RESP 12–33; O2SAT 87–95
[2024-03-18 02:35] LABS: BASOPHILS % (AUTO) 0 % (0-1); EOSINOPHILS % (AUTO) 0.1 % (0-6); HEMATOCRIT 31.5 % (35.0-45.0); HEMOGLOBIN 10.1 g/dl (12.0-16.0); LYMPHOCYTES # (AUTO) 0.2 X10'3 (1.1-4.8); LYMPHOCYTES % (AUTO) 1.7 % (21-51); MEAN CORPUSCULAR HEMOGLOBIN 29.8 PG (27.0-31.0); MEAN CORPUSCULAR VOLUME 92.9 FL (78-98); MEAN PLATELET VOLUME 8.4 FL (7.4-10.4); MONOCYTES # (AUTO) 0.3 X10'3 (0-0.9); MONOCYTES % (AUTO) 2.4 % (2-12); NEUTROPHILS # (AUTO) 12.3 X10'3 (1.8-7.7); NEUTROPHILS % (AUTO) 95.8 % (42-75); PLATELET COUNT 209 X10'3 (140-440); RED BLOOD COUNT 3.39 X10'6 (4.20-5.60); RED CELL DISTRIBUTION WIDTH 14.4 % (11.5-14.5); WHITE BLOOD COUNT 12.8 X10'3 (4.5-11.0)
[2024-03-18 03:02] LABS: ALANINE AMINOTRANSFERASE 42 U/L (12-78); ALBUMIN 2.1 G/DL (3.4-5.0); ALBUMIN/GLOBULIN RATIO 0.6 (1.1-1.5); ALKALINE PHOSPHATASE 65 IU/L (46-116); ANION GAP 3 (8-16); ASPARTATE AMINO TRANSFERASE 30 U/L (10-37); BILIRUBIN,TOTAL 0.5 MG/DL (0.1-1.0); BLOOD UREA NITROGEN 28 MG/DL (7-18); BUN/CREATININE RATIO 32.6 (10.0-20.0); CALCIUM 8.9 MG/DL (8.5-10.1); CHLORIDE 103 MMOL/L (99-107); CREATININE 0.86 MG/DL (0.40-0.90); GLUCOSE 231 MG/DL (70-104); MAGNESIUM 1.4 MG/DL (1.5-2.4); POTASSIUM 4.3 MMOL/L (3.5-5.1); SODIUM 139 MMOL/L (135-145); TOTAL CARBON DIOXIDE 32.8 MMOL/L (24-32); TOTAL PROTEIN 5.7 G/DL (6.4-8.2); eCRCL 49 ML/MIN; eGFR 63 ML/MIN
[2024-03-18 03:50] LABS: ANISOCYTOSIS FEW; PLATELET ESTIMATE NORMAL; POLYCHROMASIA FEW; TOTAL CELLS COUNTED 100
[2024-03-18 03:51] LABS: BURR CELLS FEW; ELLIPTOCYTES FEW
[2024-03-18] MEDS: magnesium sulf-water 4G/100mL 100 ML IV PRN (09:40)
[2024-03-18] MEDS: amiodarone 200mg tablet PO SCH (09:40)
[2024-03-18] MEDS: magnesium sulf-water 2g/50mL 50 ML IV PRN (09:41)
[2024-03-18] MEDS: midodrine 5mg tablet CORPAK SCH (12:00)
[2024-03-18] MEDS ORDERED: amiodarone 200mg tablet PO SCH (20:00)
[2024-03-18] MEDS: insulin regular, human U-100 3ml vial - multi-dose SQ SCH (20:00)
[2024-03-18] MEDS: amiodarone 200mg tablet CORPAK SCH (20:43)
[2024-03-18] MEDS: insulin glargine (Lantus) pen - multi-dose SQ SCH (21:00)
[2024-03-19] VITALS (32 sets, daily range): BP systolic 129–155; BP diastolic 42–97; PULSE 61–75; RESP 15–25; O2SAT 89–94
[2024-03-19 02:40] LABS: BASOPHILS % (AUTO) 0.1 % (0-1); EOSINOPHILS % (AUTO) 0 % (0-6); HEMATOCRIT 28.1 % (35.0-45.0); HEMOGLOBIN 9.3 g/dl (12.0-16.0); LYMPHOCYTES # (AUTO) 0.7 X10'3 (1.1-4.8); LYMPHOCYTES % (AUTO) 4.1 % (21-51); MEAN CORPUSCULAR HEMOGLOBIN 29.9 PG (27.0-31.0); MEAN CORPUSCULAR VOLUME 90.7 FL (78-98); MEAN PLATELET VOLUME 8.4 FL (7.4-10.4); MONOCYTES # (AUTO) 1.5 X10'3 (0-0.9); MONOCYTES % (AUTO) 8.3 % (2-12); NEUTROPHILS % (AUTO) 87.5 % (42-75); PLATELET COUNT 245 X10'3 (140-440); RED CELL DISTRIBUTION WIDTH 14.2 % (11.5-14.5); WHITE BLOOD COUNT 18.3 X10'3 (4.5-11.0)
[2024-03-19 02:52] LABS: ALANINE AMINOTRANSFERASE 52 U/L (12-78); ALBUMIN 2.3 G/DL (3.4-5.0); ALBUMIN/GLOBULIN RATIO 0.7 (1.1-1.5); ALKALINE PHOSPHATASE 66 IU/L (46-116); ANION GAP 4 (8-16); ASPARTATE AMINO TRANSFERASE 40 U/L (10-37); BILIRUBIN,TOTAL 0.5 MG/DL (0.1-1.0); BLOOD UREA NITROGEN 33 MG/DL (7-18); BUN/CREATININE RATIO 36.7 (10.0-20.0); CHLORIDE 102 MMOL/L (99-107); GLUCOSE 158 MG/DL (70-104); MAGNESIUM 2.5 MG/DL (1.5-2.4); PHOSPHORUS 4.3 MG/DL (2.3-4.5); POTASSIUM 3.9 MMOL/L (3.5-5.1); SODIUM 141 MMOL/L (135-145); TOTAL CARBON DIOXIDE 35.5 MMOL/L (24-32); TOTAL PROTEIN 5.8 G/DL (6.4-8.2); TRIGLYCERIDES 70 MG/DL (20-135); eCRCL 47 ML/MIN; eGFR 60 ML/MIN
[2024-03-19] MEDS ORDERED: acetaminophen 325mg tablet PO PRN (13:35)
[2024-03-19 17:44] LABS: D-DIMER 6.67 MG/L FEU (0-0.50)
[2024-03-19 17:52] LABS: C-REACTIVE PROTEIN 2.19 MG/DL (0.0-0.5); CREATINE KINASE 33 U/L (26-192); LACTATE DEHYDROGENASE 305 U/L (81-234); PRO BRAIN NATRIURETIC PEPTIDE 3514 PG/ML (0-450); THYROID STIMULATING HORMONE 1.61 ulU/ml (0.34-4.50)
[2024-03-19] MEDS: CefTRIAXone/D5W-Rocephin 1gm 50 ML IV SCH (19:52)
[2024-03-19] MEDS: methylPREDNISolone sod succ/PF 40mg inj. IV ONE (20:09)
[2024-03-19] MEDS: azithromycin/NS 500mg/250ml 250 ML IV SCH (20:44)
[2024-03-20] VITALS (24 sets, daily range): BP systolic 133–159; BP diastolic 51–95; PULSE 57–79; RESP 18–24; TEMP 97.6–98.6; O2SAT 86–97
[2024-03-20] MEDS: aspirin 325mg tablet PO SCH (08:13)
[2024-03-20 15:20] LABS: BASOPHILS % (AUTO) 0.1 % (0-1); EOSINOPHILS % (AUTO) 0 % (0-6); HEMATOCRIT 29.2 % (35.0-45.0); HEMOGLOBIN 9.2 g/dl (12.0-16.0); LYMPHOCYTES # (AUTO) 0.7 X10'3 (1.1-4.8); LYMPHOCYTES % (AUTO) 2.2 % (21-51); MEAN CORPUSCULAR HEMOGLOBIN 29.4 PG (27.0-31.0); MEAN CORPUSCULAR HGB CONC 31.7 g/dL (33.0-36.5); MEAN PLATELET VOLUME 7.6 FL (7.4-10.4); MONOCYTES # (AUTO) 2.3 X10'3 (0-0.9); MONOCYTES % (AUTO) 7.9 % (2-12); NEUTROPHILS # (AUTO) 26.1 X10'3 (1.8-7.7); NEUTROPHILS % (AUTO) 89.8 % (42-75); PLATELET COUNT 306 X10'3 (140-440); RED BLOOD COUNT 3.14 X10'6 (4.20-5.60); RED CELL DISTRIBUTION WIDTH 14.4 % (11.5-14.5)
[2024-03-20 15:23] LABS: WHITE BLOOD COUNT 29.1 X10'3 (4.5-11.0)
[2024-03-20 15:34] LABS: ALANINE AMINOTRANSFERASE 67 U/L (12-78); ALBUMIN 2.3 G/DL (3.4-5.0); ALBUMIN/GLOBULIN RATIO 0.6 (1.1-1.5); ALKALINE PHOSPHATASE 68 IU/L (46-116); ANION GAP 1 (8-16); ASPARTATE AMINO TRANSFERASE 39 U/L (10-37); BILIRUBIN,TOTAL 0.4 MG/DL (0.1-1.0); BLOOD UREA NITROGEN 33 MG/DL (7-18); BUN/CREATININE RATIO 38.8 (10.0-20.0); CALCIUM 8.8 MG/DL (8.5-10.1); CHLORIDE 100 MMOL/L (99-107); CREATININE 0.85 MG/DL (0.40-0.90); GLUCOSE 121 MG/DL (70-104); MAGNESIUM 2.2 MG/DL (1.5-2.4); POTASSIUM 4.8 MMOL/L (3.5-5.1); SODIUM 140 MMOL/L (135-145); TOTAL CARBON DIOXIDE 38.9 MMOL/L (24-32); TOTAL PROTEIN 5.9 G/DL (6.4-8.2); eCRCL 49 ML/MIN; eGFR 64 ML/MIN
[2024-03-20 16:59] LABS: BILIRUBIN,URINE NEGATIVE (Neg); CLARITY,URINE CLOUDY (Clear); COLOR,URINE YELLOW (Yellow); GLUCOSE, URINE NEGATIVE (Neg); KETONES,URINE NEGATIVE (Neg); LEUKOCYTE ESTERASE ,URINE NEGATIVE (Neg); NITRITES, URINE NEGATIVE (Neg); OCCULT BLOOD,URINE MODERATE (Neg); PROTEIN,URINE NEGATIVE (Neg); UA COLLECTION TYPE NON-SPECIFIED; UROBILINOGEN,URINE 0.2 E.U/dL (0.2-1.0)
[2024-03-20 17:10] LABS: BACTERIA,URINE FEW /HPF (Neg); HYALINE CASTS 0-3 /LPF (NEGATIVE); SQUAMOUS EPITHELIAL CELL,UR FEW /LPF (FEW); YEAST MANY /HPF (NEGATIVE)
[2024-03-20 17:48] LABS: HYPOCHROMASIA 2+; PLATELET ESTIMATE NORMAL; TOTAL CELLS COUNTED 100
[2024-03-20] MEDS ORDERED: diatrozoate meglu/diatrozoate sod (37% iodine) 120ML oral solution PO SCH (21:00)
[2024-03-20] MEDS: diatr meglu/diatrizoate 30ml oral sol.-(3 dose) bottle PO SCH (21:10)
[2024-03-21] VITALS (27 sets, daily range): BP systolic 132–139; BP diastolic 34–63; PULSE 55–96; RESP 15–34; TEMP 97.7–98.5; O2SAT 79–100
[2024-03-21 09:51] LABS: BASOPHILS % (AUTO) 0.1 % (0-1); EOSINOPHILS # (AUTO) 0.1 X10'3 (0-0.9); EOSINOPHILS % (AUTO) 0.4 % (0-6); HEMATOCRIT 30.5 % (35.0-45.0); HEMOGLOBIN 9.5 g/dl (12.0-16.0); LYMPHOCYTES # (AUTO) 1.3 X10'3 (1.1-4.8); LYMPHOCYTES % (AUTO) 6.3 % (21-51); MEAN CORPUSCULAR HEMOGLOBIN 29.4 PG (27.0-31.0); MEAN CORPUSCULAR HGB CONC 31.3 g/dL (33.0-36.5); MEAN CORPUSCULAR VOLUME 94.1 FL (78-98); MEAN PLATELET VOLUME 8.4 FL (7.4-10.4); MONOCYTES # (AUTO) 2.1 X10'3 (0-0.9); MONOCYTES % (AUTO) 10.2 % (2-12); NEUTROPHILS # (AUTO) 17.4 X10'3 (1.8-7.7); PLATELET COUNT 338 X10'3 (140-440); RED BLOOD COUNT 3.24 X10'6 (4.20-5.60); RED CELL DISTRIBUTION WIDTH 14.4 % (11.5-14.5); WHITE BLOOD COUNT 20.9 X10'3 (4.5-11.0)
[2024-03-21] MEDS ORDERED: iohexol 300mg/ml 100ml inj. ONE (10:27)
[2024-03-21] MEDS: furosemide 20 MG/2 ML vial IV SCH (14:50)
[2024-03-21] MEDS: fluconazole 150mg tablet PO ONE (15:36)
[2024-03-21] MEDS: furosemide 40mg/4ml inj IV ONE (15:36)
[2024-03-21 16:15] LABS: ABG BASE EXCESS 10.4 mmol/L (-2.0-2.0); ABG HCO3 36.2 mmol/L (22.0-26.0); ABG OXYGEN SATURATION 78.9 % (92-98.5); ABG PH (T) 7.434 (7.350-7.450); ABG PO2 (T) 41.4 mmHg (75.0-100.0); ALLEN'S TEST POSITIVE; FCOHb 0.7 % (0.5-1.5); FHHb 20.9 % (0.0-5.0); FLOW 10 L/min; FMetHb 0.3 % (0.0-1.5); FO2Hb 78.1 % (94-97); MODE HIGH FLOW; PATIENT TEMPERATURE 36.6; TOTAL HEMOGLOBIN 9.6 G/dl (12.0-16.0)
[2024-03-22] VITALS (25 sets, daily range): BP systolic 122–154; BP diastolic 38–52; PULSE 51–92; RESP 16–24; TEMP 97.1–98.4; O2SAT 90–98
[2024-03-22] MEDS: clotrimazole 1% vaginal cream 45gm VG SCH (00:25)
[2024-03-22 06:03] LABS: BASOPHILS % (AUTO) 0.2 % (0-1); EOSINOPHILS # (AUTO) 0.2 X10'3 (0-0.9); EOSINOPHILS % (AUTO) 1.6 % (0-6); HEMATOCRIT 29.1 % (35.0-45.0); HEMOGLOBIN 9.4 g/dl (12.0-16.0); LYMPHOCYTES % (AUTO) 7.5 % (21-51); MEAN CORPUSCULAR HEMOGLOBIN 30.1 PG (27.0-31.0); MEAN CORPUSCULAR HGB CONC 32.3 g/dL (33.0-36.5); MEAN CORPUSCULAR VOLUME 93.1 FL (78-98); MEAN PLATELET VOLUME 7.8 FL (7.4-10.4); MONOCYTES # (AUTO) 1.7 X10'3 (0-0.9); MONOCYTES % (AUTO) 11.9 % (2-12); NEUTROPHILS % (AUTO) 78.8 % (42-75); PLATELET COUNT 355 X10'3 (140-440); RED BLOOD COUNT 3.12 X10'6 (4.20-5.60); RED CELL DISTRIBUTION WIDTH 14.2 % (11.5-14.5)
[2024-03-22 06:27] LABS: ALANINE AMINOTRANSFERASE 139 U/L (12-78); ALBUMIN 2.3 G/DL (3.4-5.0); ALBUMIN/GLOBULIN RATIO 0.6 (1.1-1.5); ALKALINE PHOSPHATASE 76 IU/L (46-116); ANION GAP -1 (8-16); ASPARTATE AMINO TRANSFERASE 98 U/L (10-37); BILIRUBIN,TOTAL 0.5 MG/DL (0.1-1.0); BLOOD UREA NITROGEN 35 MG/DL (7-18); BUN/CREATININE RATIO 41.7 (10.0-20.0); CHLORIDE 100 MMOL/L (99-107); CREATININE 0.84 MG/DL (0.40-0.90); GLUCOSE 82 MG/DL (70-104); MAGNESIUM 1.9 MG/DL (1.5-2.4); POTASSIUM 4.5 MMOL/L (3.5-5.1); PRO BRAIN NATRIURETIC PEPTIDE 2175 PG/ML (0-450); SODIUM 139 MMOL/L (135-145); TOTAL PROTEIN 6.1 G/DL (6.4-8.2); eCRCL 50 ML/MIN; eGFR 65 ML/MIN
[2024-03-22 06:41] LABS: TOTAL CARBON DIOXIDE 40.2 MMOL/L (24-32)
[2024-03-22 15:31] LABS: BFSOURCE LEFT PLEURAL FLD
[2024-03-22 15:32] LABS: BFSOURCE RIGHT PLEURAL FLD; PLEURAL FLUID PH 7.554 (7.63-7.65); PLEURAL FLUID PH 7.708 (7.63-7.65)
[2024-03-22 15:52] LABS: GLUCOSE,BODY FLUID 113 MG/DL; LDH,BODY FLUID 76 U/L
[2024-03-22 16:06] LABS: GLUCOSE,BODY FLUID 120 MG/DL; LDH,BODY FLUID 92 U/L
[2024-03-22 16:07] LABS: TOTAL PROTEIN,BODY FLUID < 2.0 G/DL
[2024-03-22 16:08] LABS: LYMPHOCYTES,BODY FLUID 38 %; MONOCYTES,BODY FLUID 21 %; NEUTROPHILS,BODY FLUID 41 %
[2024-03-22 16:09] LABS: BF RBC COUNT 545 /CU MM; BF WBC COUNT 390 /CU MM (0-1000); BFAPPEAR HAZY; BFCOLOR YELLOW; BFSOURCE LEFT PLEURAL FLD; BFVOLUME 25 ML
[2024-03-22 16:10] LABS: BF MESOTHELIAL CELLS MODERATE
[2024-03-22 16:18] LABS: EOSINOPHILS,BODY FLUID 2 %; LYMPHOCYTES,BODY FLUID 31 %; MONOCYTES,BODY FLUID 30 %; NEUTROPHILS,BODY FLUID 37 %
[2024-03-22 16:19] LABS: BF MESOTHELIAL CELLS FEW; BFAPPEAR HAZY; BFCOLOR YELLOW; BFSOURCE RIGHT PLEURAL FLD; BFVOLUME 25 ML
[2024-03-22 16:22] LABS: TOTAL PROTEIN,BODY FLUID < 2.0 G/DL
[2024-03-22 16:37] LABS: BF RBC COUNT 870 /CU MM; BF WBC COUNT 96 /CU MM (0-1000)
[2024-03-23] VITALS (18 sets, daily range): BP systolic 126–138; BP diastolic 40–51; PULSE 50–80; RESP 15–30; TEMP 96.9–98; O2SAT 86–98
[2024-03-23 05:38] LABS: BASOPHILS % (AUTO) 0.4 % (0-1); EOSINOPHILS # (AUTO) 0.2 X10'3 (0-0.9); EOSINOPHILS % (AUTO) 2.5 % (0-6); HEMATOCRIT 27.4 % (35.0-45.0); HEMOGLOBIN 8.9 g/dl (12.0-16.0); LYMPHOCYTES # (AUTO) 0.9 X10'3 (1.1-4.8); LYMPHOCYTES % (AUTO) 9.9 % (21-51); MEAN CORPUSCULAR HEMOGLOBIN 29.9 PG (27.0-31.0); MEAN CORPUSCULAR HGB CONC 32.3 g/dL (33.0-36.5); MEAN CORPUSCULAR VOLUME 92.7 FL (78-98); MEAN PLATELET VOLUME 7.8 FL (7.4-10.4); MONOCYTES % (AUTO) 11.7 % (2-12); NEUTROPHILS # (AUTO) 6.7 X10'3 (1.8-7.7); NEUTROPHILS % (AUTO) 75.5 % (42-75); PLATELET COUNT 342 X10'3 (140-440); RED BLOOD COUNT 2.96 X10'6 (4.20-5.60); RED CELL DISTRIBUTION WIDTH 14.1 % (11.5-14.5); WHITE BLOOD COUNT 8.8 X10'3 (4.5-11.0)
[2024-03-23 05:59] LABS: ALANINE AMINOTRANSFERASE 115 U/L (12-78); ALBUMIN/GLOBULIN RATIO 0.6 (1.1-1.5); ALKALINE PHOSPHATASE 66 IU/L (46-116); ANION GAP 0 (8-16); ASPARTATE AMINO TRANSFERASE 69 U/L (10-37); BILIRUBIN,TOTAL 0.4 MG/DL (0.1-1.0); BLOOD UREA NITROGEN 33 MG/DL (7-18); BUN/CREATININE RATIO 36.3 (10.0-20.0); CALCIUM 8.8 MG/DL (8.5-10.1); CHLORIDE 99 MMOL/L (99-107); CREATININE 0.91 MG/DL (0.40-0.90); GLUCOSE 133 MG/DL (70-104); MAGNESIUM 1.8 MG/DL (1.5-2.4); PHOSPHORUS 4.4 MG/DL (2.3-4.5); POTASSIUM 4.6 MMOL/L (3.5-5.1); PREALBUMIN 15.2 MG/DL (19-36); SODIUM 138 MMOL/L (135-145); TOTAL CARBON DIOXIDE 39.1 MMOL/L (24-32); TOTAL PROTEIN 5.5 G/DL (6.4-8.2); TRIGLYCERIDES 40 MG/DL (20-135); eCRCL 46 ML/MIN; eGFR 59 ML/MIN
[2024-03-24] VITALS (27 sets, daily range): BP systolic 120–148; BP diastolic 41–65; PULSE 50–63; RESP 18–24; TEMP 96.9–98.3; O2SAT 85–100
[2024-03-24] MEDS ORDERED: ZINC/COPPER/MANGANESE/SELENIUM 1 ML, chromic chloride inj. 10 MCG in AA 5%/CALCIUM/LYTE... IV SCH (08:00)
[2024-03-24] MEDS ORDERED: aspirin 325mg tablet CORPAK SCH (16:23)
[2024-03-24] MEDS: fat emulsion 20% inj. 100 ML IV SCH (21:50)
[2024-03-24] MEDS: chromic chloride inj. 10 MCG, ZINC/COPPER/MANGANESE/SELENIUM 1 ML in AA 5%/CALCIUM/LYTE... IV SCH (21:50)
[2024-03-24] MEDS ORDERED: acetaminophen 325mg/10.15ml oral unit dose solution PO PRN (23:40)
[2024-03-24] MEDS ORDERED: POTASSIUM CHLORIDE 20 MEQ/15 ML oral solution PO PRN ×2 (23:40)
[2024-03-25] VITALS (16 sets, daily range): BP systolic 132–150; BP diastolic 39–46; PULSE 51–56; RESP 16–28; TEMP 97.2–97.5; O2SAT 91–97
[2024-03-25] MEDS ORDERED: amiodarone 200mg tablet PO SCH ×2 (08:00→20:00)
[2024-03-25] MEDS: atorvastatin 10mg tablet PO SCH (08:49)
[2024-03-25] MEDS: aspirin 325mg tablet PO SCH (08:49)
[2024-03-25] MEDS: oxybutynin 5mg tablet PO SCH (08:49)
[2024-03-25 09:16] LABS: ALANINE AMINOTRANSFERASE 81 U/L (12-78); ALBUMIN 2.1 G/DL (3.4-5.0); ALBUMIN/GLOBULIN RATIO 0.5 (1.1-1.5); ALKALINE PHOSPHATASE 70 IU/L (46-116); ANION GAP 0 (8-16); ASPARTATE AMINO TRANSFERASE 42 U/L (10-37); BILIRUBIN,TOTAL 0.3 MG/DL (0.1-1.0); BLOOD UREA NITROGEN 33 MG/DL (7-18); BUN/CREATININE RATIO 37.1 (10.0-20.0); CHLORIDE 97 MMOL/L (99-107); CREATININE 0.89 MG/DL (0.40-0.90); GLUCOSE 124 MG/DL (70-104); MAGNESIUM 1.9 MG/DL (1.5-2.4); PHOSPHORUS 4.4 MG/DL (2.3-4.5); POTASSIUM 4.5 MMOL/L (3.5-5.1); PREALBUMIN 18.2 MG/DL (19-36); SODIUM 132 MMOL/L (135-145); TOTAL CARBON DIOXIDE 35.4 MMOL/L (24-32); TRIGLYCERIDES 84 MG/DL (20-135); eCRCL 47 ML/MIN; eGFR 61 ML/MIN
[2024-03-25] MEDS: chromic chloride inj. 5 MCG, ZINC/COPPER/MANGANESE/SELENIUM 0.5 ML in AA 5%/CALCIUM/LYT... IV SCH (11:39)
[2024-03-25] MEDS ORDERED: Melatonin 3mg tablet PO SCH (21:00)
== END 2024-03-25 16:00 | DRG 356 ==
LOC: ER 09:51 → ED HOLD 14:26 → EDBEDREQ 16:42 → PCU 3S 19:34 → EDBEDREQ 03-10 22:07 → CICU 2S 03-11 03:44 → PCU 3S 03-19 13:18
PROVIDERS: ADMIT Internal Medicine; ATTEND Internal Medicine
PROC: B4201ZZ Computerized Tomography (CT Scan) of Abdominal Aorta using Low Osmolar Contrast (ICD-10-PCS; 2024-03-10)
PROC: B4241ZZ Computerized Tomography (CT Scan) of Superior Mesenteric Artery using Low Osmolar Contrast (ICD-10-PCS; 2024-03-10)
PROC: B4281ZZ Computerized Tomography (CT Scan) of Bilateral Renal Arteries using Low Osmolar Contrast (ICD-10-PCS; 2024-03-10)
PROC: B42C1ZZ Computerized Tomography (CT Scan) of Pelvic Arteries using Low Osmolar Contrast (ICD-10-PCS; 2024-03-10)
PROC: B42H1ZZ Computerized Tomography (CT Scan) of Bilateral Lower Extremity Arteries using Low Osmolar Contrast (ICD-10-PCS; 2024-03-10)
PROC: B4211ZZ Computerized Tomography (CT Scan) of Celiac Artery using Low Osmolar Contrast (ICD-10-PCS; 2024-03-10)
PROC: B42H1ZZ Computerized Tomography (CT Scan) of Bilateral Lower Extremity Arteries using Low Osmolar Contrast (ICD-10-PCS; 2024-03-10)
PROC: 0DJD0ZZ Inspection of Lower Intestinal Tract, Open Approach (ICD-10-PCS; 2024-03-11)
PROC: B4201ZZ Computerized Tomography (CT Scan) of Abdominal Aorta using Low Osmolar Contrast (ICD-10-PCS; 2024-03-11)
PROC: B4281ZZ Computerized Tomography (CT Scan) of Bilateral Renal Arteries using Low Osmolar Contrast (ICD-10-PCS; 2024-03-11)
PROC: B4241ZZ Computerized Tomography (CT Scan) of Superior Mesenteric Artery using Low Osmolar Contrast (ICD-10-PCS; 2024-03-11)
PROC: B42C1ZZ Computerized Tomography (CT Scan) of Pelvic Arteries using Low Osmolar Contrast (ICD-10-PCS; 2024-03-11)
PROC: B42H1ZZ Computerized Tomography (CT Scan) of Bilateral Lower Extremity Arteries using Low Osmolar Contrast (ICD-10-PCS; 2024-03-11)
PROC: B4211ZZ Computerized Tomography (CT Scan) of Celiac Artery using Low Osmolar Contrast (ICD-10-PCS; 2024-03-11)
PROC: B42H1ZZ Computerized Tomography (CT Scan) of Bilateral Lower Extremity Arteries using Low Osmolar Contrast (ICD-10-PCS; 2024-03-11)
PROC: 02HV33Z Insertion of Infusion Device into Superior Vena Cava, Percutaneous Approach (ICD-10-PCS; 2024-03-11)
PROC: 5A1945Z Respiratory Ventilation, 24-96 Consecutive Hours (ICD-10-PCS; 2024-03-11)
PROC: 0BH17EZ Insertion of Endotracheal Airway into Trachea, Via Natural or Artificial Opening (ICD-10-PCS; 2024-03-11)
PROC: 041 Lower Arteries, Bypass (ICD-10-PCS; principal; 2024-03-11 18:35)
PROC: 5A09457 Assistance with Respiratory Ventilation, 24-96 Consecutive Hours, Continuous Positive Airway Pressure (ICD-10-PCS; 2024-03-16)
PROC: 5A0945A Assistance with Respiratory Ventilation, 24-96 Consecutive Hours, High Flow/Velocity Cannula (ICD-10-PCS; 2024-03-18)
PROC: 5A0935A Assistance with Respiratory Ventilation, Less than 24 Consecutive Hours, High Flow/Velocity Cannula (ICD-10-PCS; 2024-03-19)
PROC: 5A0935A Assistance with Respiratory Ventilation, Less than 24 Consecutive Hours, High Flow/Velocity Cannula (ICD-10-PCS; 2024-03-20)
PROC: 5A0935A Assistance with Respiratory Ventilation, Less than 24 Consecutive Hours, High Flow/Velocity Cannula (ICD-10-PCS; 2024-03-21)
PROC: 06BP4ZZ Excision of Right Saphenous Vein, Percutaneous Endoscopic Approach (ICD-10-PCS; 2024-03-21)
PROC: 0W9B3ZZ Drainage of Left Pleural Cavity, Percutaneous Approach (ICD-10-PCS; 2024-03-22)
PROC: 0W993ZZ Drainage of Right Pleural Cavity, Percutaneous Approach (ICD-10-PCS; 2024-03-22)
PROC: 5A0945A Assistance with Respiratory Ventilation, 24-96 Consecutive Hours, High Flow/Velocity Cannula (ICD-10-PCS; 2024-03-22)
DX: K55.069 Acute infarction of intestine, part and extent unspecified (principal); I50.33 Acute on chronic diastolic (congestive) heart failure; J18.9 Pneumonia, unspecified organism; N17.0 Acute kidney failure with tubular necrosis; K65.9 Peritonitis, unspecified; J96.01 Acute respiratory failure with hypoxia; J44.0 Chronic obstructive pulmonary disease with (acute) lower respiratory infection; J44.1 Chronic obstructive pulmonary disease with (acute) exacerbation; B37.49 Other urogenital candidiasis; I48.92 Unspecified atrial flutter; J91.8 Pleural effusion in other conditions classified elsewhere; K52.9 Noninfective gastroenteritis and colitis, unspecified; E86.0 Dehydration; G89.29 Other chronic pain; M54.9 Dorsalgia, unspecified; F17.210 Nicotine dependence, cigarettes, uncomplicated; E87.6 Hypokalemia; R32 Unspecified urinary incontinence; I48.91 Unspecified atrial fibrillation; I11.0 Hypertensive heart disease with heart failure; I73.9 Peripheral vascular disease, unspecified; I71.43 Infrarenal abdominal aortic aneurysm, without rupture; Z66 Do not resuscitate; D50.0 Iron deficiency anemia secondary to blood loss (chronic); E16.2 Hypoglycemia, unspecified; G47.30 Sleep apnea, unspecified; G62.9 Polyneuropathy, unspecified; I95.9 Hypotension, unspecified; T38.0X5A Adverse effect of glucocorticoids and synthetic analogues, initial encounter; Y92.89 Other specified places as the place of occurrence of the external cause; Z79.82 Long term (current) use of aspirin; Z79.899 Other long term (current) drug therapy; Z91.148 Patient's other noncompliance with medication regimen for other reason
CPT/HCPCS: 36415; 36600; 71045; 71250; 71260; 74018; 74174; 74176; 74177; 76942; 80053; 81001; 81025; 82550; 82803; 82945; 82948; 83605; 83615; 83690; 83735; 83880; 83986; 84100; 84132; 84134; 84145; 84157; 84443; 84478; 84484; 85007; 85018; 85025; 85027; 85379; 85610; 85651; 85730; 86140; 86885; 86900; 86901; 86920; 87040; 87070; 87075; 87081; 87102; 88108; 88305; 89051; 92508; 92616; 93005; 93306; 94002; 94003; 94640; 94660; 94664; 94668; 94760; 96365; 97110; 97161; 97162; 97530; 97535; 99285; A4314; A4615; A4618; A5200; A6213; A6253; A6258; A6402; A6407; A6449; A7000; A7015; A9900; C1751; C1758; G0378; J0282; J0456; J0696; J1100; J1170; J1200; J1644; J1650; J1815; J1940; J2250; J2270; J2371; J2405; J2470; J2543; J2704; J2765; J2919; J3010; J3475; J3480; J3490; J7030; J7040; J7042; J7050; J7060; J7120; P9045; P9047; Q9963; Q9967

== ENCOUNTER 2024-06-20 16:04 | Emergency (ER) | payer MEDICARE, MEDICAID ==
[~2024-06-20] VITALS: Ht 167.6 cm; Wt 60.8 kg
[~2024-06-20 16:04] MED LIST changes: +PREG75CA76 PO
[2024-06-20 16:58] LABS: BASOPHILS # (AUTO) 0.1 X10'3 (0-0.2); BASOPHILS % (AUTO) 1.1 % (0-1); EOSINOPHILS # (AUTO) 0.2 X10'3 (0-0.9); EOSINOPHILS % (AUTO) 2.3 % (0-6); HEMATOCRIT 38.2 % (35.0-45.0); HEMOGLOBIN 12.1 g/dl (12.0-16.0); LYMPHOCYTES # (AUTO) 1.1 X10'3 (1.1-4.8); LYMPHOCYTES % (AUTO) 16.1 % (21-51); MEAN CORPUSCULAR HEMOGLOBIN 29.5 PG (27.0-31.0); MEAN CORPUSCULAR HGB CONC 31.8 g/dL (33.0-36.5); MEAN CORPUSCULAR VOLUME 92.9 FL (78-98); MEAN PLATELET VOLUME 7.5 FL (7.4-10.4); MONOCYTES # (AUTO) 0.9 X10'3 (0-0.9); MONOCYTES % (AUTO) 13.5 % (2-12); NEUTROPHILS # (AUTO) 4.6 X10'3 (1.8-7.7); PLATELET COUNT 275 X10'3 (140-440); RED BLOOD COUNT 4.11 X10'6 (4.20-5.60); RED CELL DISTRIBUTION WIDTH 16.2 % (11.5-14.5); WHITE BLOOD COUNT 6.9 X10'3 (4.5-11.0)
[2024-06-20 17:22] LABS: ALANINE AMINOTRANSFERASE 19 U/L (12-78); ALBUMIN/GLOBULIN RATIO 0.7 (1.1-1.5); ALKALINE PHOSPHATASE 94 IU/L (46-116); ANION GAP 5 (8-16); ASPARTATE AMINO TRANSFERASE 19 U/L (10-37); BILIRUBIN,TOTAL 0.4 MG/DL (0.1-1.0); BLOOD UREA NITROGEN 38 MG/DL (7-18); BUN/CREATININE RATIO 22.5 (10.0-20.0); CALCIUM 8.7 MG/DL (8.5-10.1); CHLORIDE 107 MMOL/L (99-107); CREATININE 1.69 MG/DL (0.40-0.90); GLUCOSE 132 MG/DL (70-104); POTASSIUM 4.1 MMOL/L (3.5-5.1); SODIUM 145 MMOL/L (135-145); TOTAL CARBON DIOXIDE 32.7 MMOL/L (24-32); TOTAL PROTEIN 7.1 G/DL (6.4-8.2); eCRCL 25 ML/MIN; eGFR 29 ML/MIN
[2024-06-20] MEDS ORDERED: AMI200T PO (17:32)
[2024-06-20 17:42] LABS: BILIRUBIN,URINE NEGATIVE (Neg); CLARITY,URINE CLEAR (Clear); COLOR,URINE YELLOW (Yellow); GLUCOSE, URINE NEGATIVE (Neg); KETONES,URINE NEGATIVE (Neg); LEUKOCYTE ESTERASE ,URINE NEGATIVE (Neg); NITRITES, URINE NEGATIVE (Neg); OCCULT BLOOD,URINE NEGATIVE (Neg); PROTEIN,URINE TRACE mg/dl (Neg); UROBILINOGEN,URINE 0.2 E.U/dL (0.2-1.0)
[2024-06-20 17:47] LABS: UA COLLECTION TYPE OTHER
[2024-06-20 17:48] LABS: BACTERIA,URINE FEW /HPF (Neg); MUCUS STRANDS FEW /LPF (Neg); RBC,URINE 0-2 /HPF (0-2); SQUAMOUS EPITHELIAL CELL,UR FEW /LPF (FEW)
[2024-06-20 17:49] LABS: HYALINE CASTS 0-3 /LPF (NEGATIVE)
[2024-06-20] MEDS ORDERED: ATRIN INH (17:49)
[2024-06-20] MEDS ORDERED: LYR75C PO (17:49)
[2024-06-20] MEDS ORDERED: ACET-890 PO (17:49)
[2024-06-20] MEDS ORDERED: BISA-77 PO (17:49)
[2024-06-20] MEDS ORDERED: SENN-360 PO (17:49)
[2024-06-20] MEDS ORDERED: VALS40TA11 PO (17:49)
[2024-06-20] MEDS ORDERED: MELA3CAP2 PO (17:49)
[2024-06-20] MEDS ORDERED: CEFD300C3 PO (17:49)
[2024-06-20] MEDS ORDERED: HEPA100D46 IV (17:49)
[2024-06-20] MEDS ORDERED: OXYB5TAB21 PO (17:49)
[2024-06-20] MEDS ORDERED: POTA-192 PO (17:49)
[2024-06-20] MEDS ORDERED: ATOR10TA87 PO (17:49)
[2024-06-20] MEDS ORDERED: FURO-150 PO (17:49)
[2024-06-20] MEDS: cephalexin 250mg capsule PO ONE (18:39)
[2024-06-20] MEDS ORDERED: CEFU250T95 PO (20:00)
[2024-06-20 21:06] VITALS: BP 154/53; PULSE 52; RESP 17; TEMP 98.9; O2SAT 92
== END 2024-06-20 21:08 | disposition still patient (30) ==
LOC: ER 16:04
DX: R55 Syncope and collapse (principal); N39.0 Urinary tract infection, site not specified; G47.30 Sleep apnea, unspecified; I10 Essential (primary) hypertension; J44.9 Chronic obstructive pulmonary disease, unspecified; G89.29 Other chronic pain; Z79.899 Other long term (current) drug therapy
CPT/HCPCS: 36415; 71045; 73521; 80053; 81001; 82948; 85025; 87088; 93005; 99285; C1758; J7030